=== PATIENT | male | born 1950 | race Caucasian/White ===

== ENCOUNTER 2020-07-16 14:26 | Outpatient (RCR) | payer MEDICARE, BC, SELFPAY ==
[2017-04-08 08:18] VITALS: BMI 34.2
== END 2020-09-28 23:59 ==
LOC: IMMUN 14:26
PROVIDERS: PCP Internal Medicine; Visit Provider Family Medicine
DX: Z23 Encounter for immunization (principal)
CPT/HCPCS: 0001A; 0002A; 91300

== ENCOUNTER → 2021-12-28 | Outpatient (CLI) | payer MEDICARE, BC, SELFPAY ==
--- NOTE | 2021-12-28 09:01 | EKG12_ITS ---
Test Reason : PREOP Blood Pressure : / mmHG Vent. Rate : 062 BPM Atrial Rate : 062 BPM P-R Int : 276 ms QRS Dur : 138 ms QT Int : 460 ms P-R-T Axes : 059 -23 -18 degrees QTc Int : 466 ms Sinus rhythm with 1st degree A-V block Right bundle branch block Abnormal ECG Confirmed by SAMUEL VALLEJO, JACK ([id number]), editor in chief KARUNA HENDERSON ([id number]) on 12/29/2021 7:46:45 AM Referred By: Gregory Mascorro Confirmed By:JACK BAKER MD
[2021-12-28 09:36] LABS: Hemoglobin 14.8 g/dL (13.0-16.5); Mean Corp Hgb Conc 35.2 g/dL (32-36); Mean Corpuscular Hgb 33.2 pg (27.0-32.0); Mean Corpuscular Volume 94.2 fL (80-94); Mean Platelet Vol. 9.2 fl (6.2-12.0); Platelet Count 254 K/mm3 (150-450); RBC Distribution Width CV 11.9 % (11.6-14.6); RBC Distribution Width SD 41.4 fl (35.1-43.9); Red Blood Count 4.46 M/mm3 (4.6-6.2); White Blood Count 5.7 K/mm3 (4.4-11.0)
[2021-12-28 10:11] LABS: Anion Gap 8 (5-15); BUN 14 mg/dL (7-18); BUN/Creat Ratio 13.2 RATIO (10-20); Calcium,Total 8.5 mg/dL (8.5-10.1); Chloride 106 mmol/L (98-107); Creatinine, Serum 1.06 mg/dL (0.70-1.30); EST Glomerular Filtration Rate 73 mL/min (>60); Est Glom Filt Rate - Afr Amer 89 mL/min (>60); Glucose 139 mg/dL (74-106); Potassium 3.8 mmol/L (3.5-5.1); Sodium Level 141 mmol/L (136-145)
== END | disposition home or self-care (01) ==
LOC: PSN 08:59
PROVIDERS: PCP Internal Medicine; Referring Provider Otolaryngology; Visit Provider Otolaryngology
DX: Z01.818 Encounter for other preprocedural examination (principal)
CPT/HCPCS: 36415; 80048; 85027; 93005